=== PATIENT | female | born 1975 | race African-American/Black ===

== ENCOUNTER → 2017-11-20 | Day surgery (SDC) | payer OTHER ==
--- NOTE | 2017-11-19 18:10 | History & Physical Pre-Op ---
General Information and HPI History of Present Illness: Patient is a 42-year-old 1 para 1 with chronic menorrhagia who desires surgical treatment. She is scheduled for D&C hysteroscopy and NovaSure ablation. Allergies/Medications Allergies: Uncoded Allergies: Allergy Other N Med Allergies SEASONAL Past History Medical History Cardiovascular: hypertension Surgical History Pertinent Surgical History: none Review of Systems Review of Systems EENTM: Reports: no symptoms. Cardiovascular: Reports: no symptoms. Respiratory: Reports: no symptoms. GI: Reports: no symptoms. Genitourinary: Reports: see HPI. Musculoskeletal: Reports: no symptoms. Skin: Reports: no symptoms. Neurological/Psychological: Reports: no symptoms. Hematologic/Endocrine: Reports: no symptoms. Immunologic/Allergic: Reports: no symptoms. All Other Systems: Reviewed and Negative Exam & Diagnostic Data Last 24 Hrs of Vital Signs/I&O Vital signs stable Physical Exam: HEENT: Normocephalic atraumatic slight strabismus Chest: Clear to auscultation bilaterally Cardiovascular: Normal S1-S2 Abdomen: Obese nontender Pelvic: Deferred OR Extremities: No clubbing cyanosis or edema Assessment/Plan Assessment/Plan: Menorrhagia Plan: D&C hysteroscopy and NovaSure ablation As Ranked By This Provider Problem List: 1. Menorrhagia
[~2017-11-20] VITALS: Ht 167.6 cm; Wt 117.9 kg
--- NOTE | 2017-11-29 20:42 | Operative Report ---
Operative/Inv Procedure Report Surgery Date: 11/20/17 Name of Procedure: D&C hysteroscopy NovaSure ablation Pre-Operative Diagnosis: Menorrhagia Post-Operative Diagnosis: Same Estimated Blood Loss: scant Surgeon/Escape Wheel Tooth Cutter: Robert Peres MD Anesthesia: local monitored anesthesi Operative/Procedure Note Note: The patient was brought to the operating room placed on the OR table in the dorsal supine position. She was given adequate anesthesia and repositioned in a modified dorsal lithotomy. She is prepped and draped in usual sterile fashion. A weighted speculum was inserted into the vagina with help of a Galata retractor single-tooth tenaculum was attached to the anterior lip of the cervix. The cervix was injected with 1% lidocaine with epinephrine, 2-1/2 mL in each quadrant. An endocervical curettage was performed revealing a moderate amount of tissue. The uterus is then sounded to 10 cm anteverted. The cervix was serially dilated to accommodate the hysteroscope. The hysteroscope was placed into the uterus and the saline infusion was activated. Shaggy endometrium was noted throughout no polyps or fibroids were noted. The hysteroscope was removed. The cervix was further dilated and then a sharp curettage was performed revealing a moderate amount of tissue. At this point the NovaSure apparatus was primed and placed into the uterus the length was measured at 6 cm and the width was 4-1/2 cm for a wattage of 123 at 60 seconds. At the end of the ablation the instrument was removed and noted to be intact. Hemostasis was good from the cervical os however the tenaculum site was bleeding and a figure- of-eight suture of 2-0 Polysorb was placed here for hemostasis. The patient was then awakened and sent to recovery in good condition. All needle, sponge, and management counts were correct at the end of the procedure 2.
== END ==
LOC: STS 02:57
DX: N92.0 Excessive and frequent menstruation with regular cycle (principal); I10 Essential (primary) hypertension
CPT/HCPCS: 36415; 81025; 88305; 93005; 93010; J2001; J2250